=== PATIENT | female | born 1960 | race Native Hawaiian/Other Pacific Islander ===

== ENCOUNTER 2018-09-23 15:43 | Outpatient (CLI) | payer BC | END 2018-09-23 15:46 | disposition short-term general hospital (02) | LOC: AMB 15:43 | DX: M54.5 Low back pain (principal); M79.605 Pain in left leg; W01.0XXA Fall on same level from slipping, tripping and stumbling without subsequent striking against object, initial encounter; Y93.89 Activity, other specified; Y92.512 Supermarket, store or market as the place of occurrence of the external cause | CPT/HCPCS: A0425; A0429 ==

== ENCOUNTER 2018-09-23 15:59 | Emergency (ER) | payer BC ==
[~2018-09-23] VITALS: Ht 154.9 cm; Wt 108.9 kg
[2018-09-23 17:54] VITALS: BP 150/84; TEMP 98
== END 2018-09-23 17:56 | disposition home or self-care (01) ==
LOC: ED 15:59
DX: S16.1XXA Strain of muscle, fascia and tendon at neck level, initial encounter (principal); S29.012A Strain of muscle and tendon of back wall of thorax, initial encounter; W18.09XA Striking against other object with subsequent fall, initial encounter; Y92.524 Gas station as the place of occurrence of the external cause
CPT/HCPCS: 96372; 99283; J1885